=== PATIENT | male | born 1945 | race African-American/Black ===

== ENCOUNTER 2017-11-06 14:37 | Inpatient (IN) | payer MEDICARE ==
[~2017-11-06] VITALS: Ht 182.9 cm; Wt 113.6 kg
[2017-11-06] VITALS (7 sets, daily range): BP systolic 135–168; BP diastolic 69–88
[2017-11-06] MEDS ORDERED: METOPROLOL TA37.5 MG PO (14:57)
[2017-11-06] MEDS ORDERED: DEPAKOTE500 MG PO (14:58)
[2017-11-06] MEDS ORDERED: LISINOPRIL2.5 MG PO (14:58)
[2017-11-06] MEDS ORDERED: CYMBALTA60 MG PO (14:58)
[2017-11-06] MEDS ORDERED: LANTUS SOL100 UNIT/1 SC (14:59)
[2017-11-06] MEDS ORDERED: NOVOLOG FL100 UNIT/1 SC (15:00)
[2017-11-06] MEDS ORDERED: METFORMIN500 MG PO (15:00)
[2017-11-06] MEDS ORDERED: ALLOPURINOL100 MG PO (15:01)
[2017-11-06] MEDS ORDERED: NORVASC2.5 MG PO (15:01)
[2017-11-06] MEDS ORDERED: ASPIRIN CHEWABL81 MG PO (15:02)
[2017-11-06 16:00] LABS: BASO % 0.4 % (0.0-1.0); EOS % 0.6 % (1.0-4.0); HEMATOCRIT 43.2 % (42.0-52.0); HEMOGLOBIN 14.3 g/dl (14.0-18.0); LYMPH # 2.6 10*3/uL (1.3-4.4); LYMPH % 35.9 % (27.0-41.0); MEAN CELL VOLUME 92.5 fl (80.0-94.0); MEAN CORPUSCULAR HGB 30.6 pg (27.0-31.0); MEAN CORPUSCULAR HGB CONC 33.1 g/dl (33.0-37.0); MEAN PLATELET VOLUME 11.1 fl (9.6-12.3); MONO # 0.7 10*3/uL (0.1-1.0); MONO % 9.2 % (3.0-9.0); NEUT # 3.9 10*3/uL (2.3-7.9); NEUT % 53.5 % (47.0-73.0); PLATELET COUNT AUTOMATED 215 10*3/uL (130-400); RED BLOOD COUNT 4.67 10*6/uL (4.50-5.90); RED CELL DISTRI WIDTH 13.7 % (0-14.5); WHITE BLOOD COUNT 7.2 10*3/uL (4.8-10.8)
[2017-11-06 16:15] LABS: BILIRUBIN 2+ (NEGATIVE); BLOOD 2+ (NEGATIVE); CLARITY SL CLOUDY (CLEAR); COLOR YELLOW (YELLOW); GLUCOSE NEGATIVE (NEGATIVE); KETONE 1+ (NEGATIVE); LEUKO ESTERASE NEGATIVE (NEGATIVE); NITRITE NEGATIVE (NEGATIVE); PH 5.5 (5.0-9.0); SPECIFIC GRAVITY >= 1.030 (1.005-1.030)
[2017-11-06 16:20] LABS: ALBUMIN 4.1 gm/dl (3.1-4.5); ALKALINE PHOSPHATASE 85 U/L (45-117); BUN 15 mg/dl (7-24); CHLORIDE 99 mmol/L (98-107); CREATININE 1.17 mg/dL (0.70-1.30); POTASSIUM 3.7 mmol/L (3.5-5.1); SGOT/AST 27 IU/L (3-35); SGPT/ALT 21 U/L (12-78); SODIUM 136 mmol/L (136-145); TOTAL PROTEIN 7.4 gm/dL (6.4-8.2)
[2017-11-06 16:21] LABS: TROPONIN I 0.016 ng/ml (<0.045)
[2017-11-06 16:26] LABS: BACTERIA 2+; MUCOUS TRACE
[2017-11-07] VITALS: BP 148/88
[2017-11-07 03:36] LABS: URINE AMPHETAMINES < 1000 (1000ng/ml); URINE BARBITURATES < 200 (200ng/ml); URINE BENZODIAZEPINES < 200 (200ng/ml); URINE CANNABINOIDS (THC) < 50 (50ng/ml); URINE COCAINE < 300 (300ng/ml); URINE METHADONE < 300 (300ng/ml); URINE OPIATES < 300 (300ng/ml)
[2017-11-07 03:41] LABS: URINE PHENCYCLIDINE < 25 (25ng/ml)
[2017-11-07 05:53] LABS: ALBUMIN 3.7 gm/dl (3.1-4.5); ALKALINE PHOSPHATASE 99 U/L (45-117); BUN 18 mg/dl (7-24); CHLORIDE 98 mmol/L (98-107); CPK 735 U/L (39-308); CREATININE 1.12 mg/dL (0.70-1.30); POTASSIUM 3.8 mmol/L (3.5-5.1); SGOT/AST 25 IU/L (3-35); SGPT/ALT 19 U/L (12-78); SODIUM 136 mmol/L (136-145); TOTAL PROTEIN 6.8 gm/dL (6.4-8.2)
[2017-11-07 05:54] LABS: FREE T4 1.23 ng/dl (0.76-1.46)
[2017-11-07 06:34] LABS: BASO % 0.3 % (0.0-1.0); EOS # 0.1 10*3/uL (0.0-0.4); EOS % 0.9 % (1.0-4.0); HEMATOCRIT 40.3 % (42.0-52.0); HEMOGLOBIN 13.2 g/dl (14.0-18.0); LYMPH # 2.4 10*3/uL (1.3-4.4); MEAN CELL VOLUME 92.4 fl (80.0-94.0); MEAN CORPUSCULAR HGB 30.3 pg (27.0-31.0); MEAN CORPUSCULAR HGB CONC 32.8 g/dl (33.0-37.0); MEAN PLATELET VOLUME 11.4 fl (9.6-12.3); MONO # 0.7 10*3/uL (0.1-1.0); MONO % 10.7 % (3.0-9.0); NEUT # 3.5 10*3/uL (2.3-7.9); NEUT % 51.7 % (47.0-73.0); PLATELET COUNT AUTOMATED 214 10*3/uL (130-400); RED BLOOD COUNT 4.36 10*6/uL (4.50-5.90); RED CELL DISTRI WIDTH 13.3 % (0-14.5); WHITE BLOOD COUNT 6.7 10*3/uL (4.8-10.8)
[2017-11-07 08:00] VITALS: BP 114/88
[2017-11-07] MEDS ORDERED: LIPITOR80 MG PO (10:02)
[2017-11-07] MEDS ORDERED: TOPROL XL25 MG PO (10:03)
[2017-11-07] MEDS ORDERED: ITCHY EYE5 ML OS (10:06)
[2017-11-07] MEDS ORDERED: ALLERGY RELIEF25 MG PO (10:07)
[2017-11-07] MEDS ORDERED: ASPIRIN CHEWABL81 MG PO (10:07)
[2017-11-07] MEDS ORDERED: MULTIVITAMINS1 EAC5 PO (10:08)
[2017-11-07 10:25] LABS: VITAMIN D, 25-HYDROXY 11.7 ng/mL (30-100)
[2017-11-07 12:00] VITALS: BP 152/75
[2017-11-07] MEDS ORDERED: Insulin Lispro, Reco SC (15:24)
[2017-11-07] MEDS ORDERED: ENOXAPARIN40 MG/0.2 SC (15:24)
[2017-11-07] MEDS ORDERED: Vitamin D PO (15:24)
[2017-11-07] MEDS ORDERED: LORAZEPAM2 MG/1 M1 IV (15:24)
[2017-11-07 16:00] VITALS: BP 126/86; BP 127/80; BP 132/78
== END 2017-11-07 20:44 | disposition short-term general hospital (02) | DRG 56 ==
LOC: ED 14:37 → EDHOLD 18:35 → 4E 18:35
PROVIDERS: Hospitalist; Internal Medicine; Physician Assistant
DX: G25.79 Other drug induced movement disorders (principal); G93.41 Metabolic encephalopathy; E11.65 Type 2 diabetes mellitus with hyperglycemia; R56.9 Unspecified convulsions; F32.9 Major depressive disorder, single episode, unspecified; D64.9 Anemia, unspecified; I10 Essential (primary) hypertension; G25.5 Other chorea; R00.0 Tachycardia, unspecified; M10.9 Gout, unspecified; Z88.6 Allergy status to analgesic agent; Z79.4 Long term (current) use of insulin; Z79.899 Other long term (current) drug therapy; Z81.8 Family history of other mental and behavioral disorders; T50.995A Adverse effect of other drugs, medicaments and biological substances, initial encounter; Y92.89 Other specified places as the place of occurrence of the external cause